=== PATIENT | female | born 1965 | race African-American/Black ===

== ENCOUNTER 2017-04-21 09:00 | Day surgery (SDC) | payer BC ==
[~2017-04-21] VITALS: Ht 160 cm; Wt 68.2 kg
[2017-04-21 09:25] VITALS: BP 143/99; PULSE 62; RESP 20; TEMP 97.9; O2SAT 99
[2017-04-21] MEDS ORDERED: ATOR20TA15 PO (09:34)
[2017-04-21] MEDS ORDERED: JANU50TA8 PO (09:34)
[2017-04-21] MEDS ORDERED: AMLO5TAB2 PO (09:34)
[2017-04-21 10:44] LABS: AUTOMATED NEUTROPHIL # 2.1 TH/MM3 (1.8-7.7); BASOPHIL % 0.5 % (0.0-2.0); HEMATOCRIT 43.7 % (35.0-46.0); HEMO FLAGS DIFF FINAL; LYMPH % 43.4 % (9.0-44.0); MEAN CELL VOLUME 81.1 FL (80.0-100.0); MEAN CORPUSCULAR HGB CONC 33.2 % (32.0-36.0); NEUT % 45.1 % (16.0-70.0); PLATELET COUNT 186 TH/MM3 (150-450); RED BLOOD COUNT 5.39 MIL/MM3 (4.00-5.30); RED CELL DISTRIBUTION WIDTH 15.8 % (11.6-17.2); WHITE BLOOD COUNT 4.6 TH/MM3 (4.0-11.0)
[2017-04-21 10:54] LABS: APTT (PATIENT) 24.7 SEC (24.3-30.1); INTERNATIONAL NORMALIZED RATIO 0.9 RATIO; PROTHROMBIN TIME - PATIENT 10.3 SEC (9.8-11.6)
[2017-04-21 11:09] LABS: BICARBONATE 25.5 MEQ/L (21.0-32.0); POTASSIUM 4.1 MEQ/L (3.5-5.1)
[2017-04-21] MEDS ORDERED: MIDAZOLAM HCL 2 MG/2 ML VIAL ONE (11:22)
[2017-04-21 12:05] VITALS: BP 115/76; PULSE 59; PULSE 60; RESP 16; RESP 20; TEMP 97.7; O2SAT 95
[2017-04-21 12:20] VITALS: BP 112/78; PULSE 65; RESP 20; O2SAT 98
--- NOTE | 2017-04-21 12:21 | PD.RAD ---
Post Procedure Progress Note Pre Procedure Diagnosis: (1) Altered mental status Post Procedure Diagnosis: (1) Altered mental status Procedure Date: Apr 21, 2017 Supervising Radiologist: aKlin Barriga JR Proceduralist/Assist: Chloe Mcpherson, RT(R), Lalita Zavala RT(R)() Anesthesia: Conscious Sedation Plan of Activity Patient to Unit: ROPU Patient Condition: Good See PACS Report for procedural detail/treatment Spinal Procedure Lumbar Puncture L3-L4 Fluid Removal (CCs): 13 Fluid Description: Clear Puncture Time: 11:47 Findings: Opening pressure: 31.4 cm H2O Closing pressure: 21.4 cm H2o Jr. Barriga Thomas Justin MD Apr 21, 2017 12:21
--- NOTE | 2017-04-21 12:27 | RADRPT ---
EXAM DATE/TIME: 04/21/2017 11:24 [place] COMPARISON: No previous studies available for comparison. INDICATIONS : Patient with a history of multiple sclerosis. MEDICAL HISTORY : HTN HLD Diabetes SURGICAL HISTORY : None. ENCOUNTER: Initial ACUITY: 2 months PAIN SCORE: 0/10 LUMBAR PUNCTURE TIME: 1147 hours FLUORO TIME: 1.0 minutes ACCESS LEVEL: L3-4 OPENING PRESSURE: 31.4 cm of water CLOSING PRESSURE: 21.4 FLUID: 13 cc of clear CSF was collected and sent to the laboratory for analysis. SEDATION: 1.) 3 mg midazolam (Versed) IV 2.) 150 mcg fentanyl (Sublimaze) IV PROCEDURE : 1. Fluoroscopic guided lumbar puncture. 2. Recording of opening pressure. 3. Conscious sedation with continuous EKG and pulse oximetry monitoring The risks, benefits and alternatives to the procedure were explained and verbal and written consent w as obtained. The site was prepped in sterile fashion. Full sterile technique was used, including ca p, mask, sterile gloves and gown and a large sterile sheet. Hand hygiene and 2% chlorhexidine and/or betadine/alcohol prep was utilized per protocol for cutaneous antisepsis. The skin and subcutaneous tissues were infiltrated with local anesthetic solution. With fluoroscopic guidance the lumbar thecal sac was punctured at the above level described above and the opening pressure was recorded. The above described fluid was removed without difficulty. Conscious sedation with continuous monitoring was performed throughout the exam. The patient tolerated the procedure well and there were no complications. CONCLUSION: Uncomplicated fluoroscopically guided lumbar puncture with pressures as above. Kalin Barriga Jr., MD on April 21, 2017 at 12:25 Board Certified Radiologist. This report was verified electronically.
[2017-04-21 12:50] VITALS: BP 110/69; PULSE 56; RESP 20; O2SAT 94
[2017-04-21 13:20] VITALS: BP 114/68; PULSE 59; RESP 20; O2SAT 95
[2017-04-21 13:23] LABS: GROSS BLOOD TUBE #1 TRACE (0); GROSS BLOOD TUBE #2 0 (0); GROSS BLOOD TUBE #3 0 (0); GROSS BLOOD TUBE #4 0 (0); SUPERNATE COLOR TUBE #1 CLEAR (CLEAR); SUPERNATE COLOR TUBE #2 CLEAR (CLEAR); SUPERNATE COLOR TUBE #3 CLEAR (CLEAR); SUPERNATE COLOR TUBE #4 CLEAR (CLEAR); VOLUME TUBE # 4 4.2 ML; WBC TUBE #4 0 /MM3 (0-10)
[2017-04-21 13:24] LABS: CSF LYMPHOCYTES 0 %; CSF NEUTROPHILS 0 %
[2017-04-21 13:50] VITALS: BP 114/69; PULSE 62; RESP 20; O2SAT 97
== END 2017-04-21 14:20 | disposition home or self-care (01) ==
LOC: HROP 09:00 → HRIP 09:01 → HROP 14:20
PROVIDERS: ATTEND Radiology Body Imaging
DX: G35 Multiple sclerosis (principal); I10 Essential (primary) hypertension; E78.5 Hyperlipidemia, unspecified; E11.9 Type 2 diabetes mellitus without complications; Z79.84 Long term (current) use of oral hypoglycemic drugs
CPT/HCPCS: 62270; 77003; 80048; 82040; 82042; 82784; 82945; 83873; 83916; 84157; 85025; 85610; 85730; 87070; 87102; 87205; 87206; 87799; 89051; J2250; J3010